=== PATIENT | male | born 1985 | race Caucasian/White ===

== ENCOUNTER 2020-03-20 18:23 | Emergency (ER) | payer SELFPAY ==
[2020-03-20] MEDS ORDERED: Sodium Chloride 0.9% 10 ML Syringe FLUSH PRN (18:51)
--- NOTE | 2020-03-20 20:33 | CR ---
Chest: PA and lateral views of the chest were obtained. Comparison: No previous chest imaging is available. Heart size and mediastinum are normal. Lungs are clear with no acute parenchymal change. Bony structures are unremarkable. Impression: 1. Nothing acute is seen on 2 view chest x-ray. Diagnostic code #1 Study was dictated in MDT
[2020-03-20] MEDS ORDERED: Sodium Chloride 0.9% 1,000 ML IV STA (20:57)
--- NOTE | 2020-03-20 23:10 | EDM.PDOC ---
ED HPI GENERAL MEDICAL PROBLEM - General Chief Complaint: Chest Pain Stated Complaint: [facility] Time Seen by Provider: 03/20/20 18:35 Source of Information: Reports: Patient History Limitations: Reports: No Limitations - History of Present Illness INITIAL COMMENTS - FREE TEXT/NARRATIVE: Patient is a 34-year-old male presenting to the emergency department with complaints of passing episode of paresthesia to his bilateral upper extremities and bilateral lower extremities, as well as some intermittent left-sided chest pain. 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 Patient reports that he was driving down the road when he had numbness in his left upper extremity causing him to lose strength. This fell off the steering wheel. It then moved to his right arm and progressively to his bilateral lower extremities. He states this was a transient episode. Lasted a few minutes and resolved by the time EMS arrived. He also reports some left-sided chest discomfort as well as pain in his right lower calf. 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 He was on Xarelto for a number of months and just recently taking off of it in December, however he was told that he does still have a DVT in that leg. He verbalizes that when he was back home in [place] about a week ago, they did a ultrasound of his leg and that the blood clot was unchanged from the previous ultrasound. He denies any significant cardiac history. States he occasionally gets some palpitations and intermittent pain in his chest and he has been checked out for this a number of times and everything is generally found normal. Patient was actually seen in the emergency department in [facility] yesterday for very similar complaints. He had a complete work-up done there including a CT scan of his head with and without contrast, a CT angiogram of his chest, and venous Doppler ultrasounds of his bilateral lower extremities. States the work-up results were grossly unremarkable. No blood clots were found. His CT scan of his head was normal. He is concerned because he states he does not know where the blood clot could have gone in a week. He still has some mild discomfort in his right popliteal area which is where the blood clot was previously. Denies any fever, chills, cough, nausea, vomiting, or diarrhea. 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 Left Upper Chest Pain Score (Numeric/FACES): 8 - Related Data Allergies Allergy/AdvReac Type Severity Reaction Status Date / Time No Known Allergies Allergy Verified 03/20/20 18:31 Home Meds: Home Meds Emtricitab/Rilpiviri/Tenof Ala [Odefsey Tablet] 1 tab PO DAILY 03/20/20 [History] Past Medical History Cardiovascular History: Reports: Blood Clots/VTE/DVT Musculoskeletal History: Reports: Fracture Neurological History: Reports: Concussion Immunologic History: Reports: HIV - Infectious Disease History Infectious Disease History: Reports: HIV-Human Immunodeficiency Virus - Past Surgical History Respiratory Surgical History: Reports: Thoracentesis GI Surgical History: Reports: Hernia, Inguinal Social & Family History - Tobacco Use Smoking Status *Q: Current Every Day Smoker Years of Tobacco use: 24 Packs/Tins Daily: 1 - Caffeine Use Caffeine Use: Reports: None - Recreational Drug Use Recreational Drug Use: No ED ROS GENERAL - Review of Systems Review Of Systems: See Below Constitutional: Reports: Weakness. Denies: Fever, Chills HEENT: Reports: No Symptoms Respiratory: Denies: Shortness of Breath, Wheezing, Cough Cardiovascular: Reports: Chest Pain, Lightheadedness Endocrine: Reports: No Symptoms GI/Abdominal: Reports: No Symptoms. Denies: Abdominal Pain, Nausea, Vomiting : Reports: No Symptoms Musculoskeletal: Reports: Leg Pain Skin: Reports: No Symptoms Neurological: Reports: No Symptoms Psychiatric: Reports: No Symptoms Hematologic/Lymphatic: Reports: No Symptoms Immunologic: Reports: No Symptoms ED EXAM, GENERAL - Physical Exam Exam: See Below General Appearance: Alert, WD/WN, No Apparent Distress Respiratory/Chest: No Respiratory Distress, Lungs Clear, Normal Breath Sounds, No Accessory Muscle Use, Chest Non-Tender Cardiovascular: Normal Peripheral Pulses, Regular Rate, Rhythm, No Edema, No Gallop, No JVD, No Murmur, No Rub GI/Abdominal: Normal Bowel Sounds, Soft, Non-Tender, No Organomegaly, No Distention, No Abnormal Bruit, No Mass Extremities: Normal Inspection, Normal Range of Motion, Non-Tender, Normal Capillary Refill, No Pedal Edema Neurological: Alert, Oriented, CN II-XII Intact, Normal Cognition, Normal Gait, Normal Reflexes, No Motor/Sensory Deficits Psychiatric: Normal Affect, Normal Mood Skin Exam: Warm, Dry, Intact, Normal Color, No Rash EKG INTERPRETATION EKG Date: 03/21/20 Time: 20:25 Rhythm: NSR Rate (Beats/Min): 68 Happy: Normal P-Wave: Present QRS: Normal ST-T: Normal QT: Normal EKG Interpretation Comments: Sinus rhythm at 68 bpm Q waves V1 V2-old anterior septal MS Early R wave transition consider septal hypertrophy Diffuse early repolarization pattern EKG interpreted by Dr. Nemo HERNANDEZ. Course - Vital Signs Last Recorded V/S: Last Vital Signs Temp 99.6 F 03/20/20 18:27 Pulse 74 03/20/20 18:27 Resp 18 03/20/20 18:27 BP 131/82 03/20/20 18:27 Pulse Ox 95 03/20/20 18:27 Orthostatic Blood Pressure [ 119/100 Standing] Orthostatic Blood Pressure [ 108/78 Sitting] Orthostatic Blood Pressure [ 114/77 Supine] - Orders/Labs/Meds Orders: Active Orders 24 hr Category Date Time Status VL Duplex Lwr Ext Veins Ltd Rt [US] Stat Exams 03/20/20 20:58 Taken Peripheral IV Insertion Adult [OM.PC] Stat Oth 03/20/20 18:51 Ordered Labs: Laboratory Tests 03/20/20 03/20/20 03/20/20 Range/Units 18:54 19:30 19:30 WBC 5.80 (4.23-9.07) K/mm3 RBC 5.05 (4.63-6.08) M/mm3 Hgb 15.6 (13.7-17.5) gm/dl Hct 45.9 (40.1-51.0) % MCV 90.9 (79.0-92.2) fl MCH 30.9 (25.7-32.2) pg MCHC 34.0 (32.2-35.5) g/dl RDW Std Deviation 46.2 H (35.1-43.9) fL Plt Count 223 (163-337) K/mm3 MPV 9.7 (9.4-12.3) fl Neut % (Auto) 60.0 (34.0-67.9) % Lymph % (Auto) 25.7 (21.8-53.1) % [place] % (Auto) 11.4 (5.3-12.2) % Eos % (Auto) 2.4 (0.8-7.0) Baso % (Auto) 0.3 (0.1-1.2) % Neut # (Auto) 3.48 (1.78-5.38) K/mm3 Lymph # (Auto) 1.49 (1.32-3.57) K/mm3 [place] # (Auto) 0.66 (0.30-0.82) K/mm3 Eos # (Auto) 0.14 (0.04-0.54) K/mm3 Baso # (Auto) 0.02 (0.01-0.08) K/mm3 D-Dimer, Quantitative 0.63 H (0.19-0.50) mg/L Sodium (136-145) mEq/L Potassium (3.5-5.1) mEq/L Chloride (98-107) mEq/L Carbon Dioxide (21-32) mEq/L Anion Gap (5-15) BUN (7-18) mg/dL Creatinine (0.7-1.3) mg/dL Est Cr Clr Drug Dosing mL/min Estimated GFR (MDRD) (>60) mL/min BUN/Creatinine Ratio (14-18) Glucose (74-106) mg/dL Calcium (8.5-10.1) mg/dL Total Bilirubin (0.2-1.0) mg/dL AST (15-37) U/L ALT (16-63) U/L Alkaline Phosphatase (46-116) U/L Troponin I (0.00-0.056) ng/mL C-Reactive Protein (<1.0) mg/dL Total Protein (6.4-8.2) g/dl Albumin (3.4-5.0) g/dl Globulin gm/dL Albumin/Globulin Ratio (1-2) Free T4 0.91 (0.76-1.46) ng/dL TSH 3rd Generation 1.755 (0.358-3.74) uIU/mL 03/20/20 Range/Units 19:30 WBC (4.23-9.07) K/mm3 RBC (4.63-6.08) M/mm3 Hgb (13.7-17.5) gm/dl Hct (40.1-51.0) % MCV (79.0-92.2) fl MCH (25.7-32.2) pg MCHC (32.2-35.5) g/dl RDW Std Deviation (35.1-43.9) fL Plt Count (163-337) K/mm3 MPV (9.4-12.3) fl Neut % (Auto) (34.0-67.9) % Lymph % (Auto) (21.8-53.1) % [place] % (Auto) (5.3-12.2) % Eos % (Auto) (0.8-7.0) Baso % (Auto) (0.1-1.2) % Neut # (Auto) (1.78-5.38) K/mm3 Lymph # (Auto) (1.32-3.57) K/mm3 [place] # (Auto) (0.30-0.82) K/mm3 Eos # (Auto) (0.04-0.54) K/mm3 Baso # (Auto) (0.01-0.08) K/mm3 D-Dimer, Quantitative (0.19-0.50) mg/L Sodium 137 (136-145) mEq/L Potassium 3.7 (3.5-5.1) mEq/L Chloride 103 (98-107) mEq/L Carbon Dioxide 26 (21-32) mEq/L Anion Gap 11.7 (5-15) BUN 11 (7-18) mg/dL Creatinine 1.0 (0.7-1.3) mg/dL Est Cr Clr Drug Dosing 126.75 mL/min Estimated GFR (MDRD) > 60 (>60) mL/min BUN/Creatinine Ratio 11.0 L (14-18) Glucose 92 (74-106) mg/dL Calcium 8.3 L (8.5-10.1) mg/dL Total Bilirubin 0.3 (0.2-1.0) mg/dL AST 24 (15-37) U/L ALT 30 (16-63) U/L Alkaline Phosphatase 98 (46-116) U/L Troponin I < 0.017 (0.00-0.056) ng/mL C-Reactive Protein 0.4 (<1.0) mg/dL Total Protein 8.6 H (6.4-8.2) g/dl Albumin 3.2 L (3.4-5.0) g/dl Globulin 5.4 gm/dL Albumin/Globulin Ratio 0.6 L (1-2) Free T4 (0.76-1.46) ng/dL TSH 3rd Generation (0.358-3.74) uIU/mL Meds: Medications Discontinued Medications Generic Name Dose Route Start Last Admin Trade Name Rosalind PRN Reason Stop Dose Admin Sodium Chloride 1,000 mls @ 999 mls/hr 03/20/20 20:57 03/20/20 20:50 Normal Saline IV 03/20/20 21:57 999 mls/hr NOW STA Administration Sodium Chloride 10 ml 03/20/20 18:51 Saline Flush FLUSH ASDIRECTED PRN Keep Vein Open - Re-Assessments/Exams Free Text/Narrative Re-Assessment/Exam: Patient is a 34-year-old male presenting emergency department with transient episode of bilateral upper extremity and lower extremity paresthesia as well as some left-sided chest pain. He states he has had episodes like this in the past most recent being yesterday. He also voices concern regarding his previous DVT to his right lower extremity. He is not significantly short of breath and appears in no distress on exam. We will complete a cardiac work-up including CBC, CMP, CRP, d-dimer, troponin, EKG, chest x-ray. If the d-dimer is found to be elevated, will consider re-ultrasound in his lower extremities as he is quite concerned with this and feels like the technique the used in [place] was not the same as the technique used in [place] he thinks he may have missed a clot. 03/20/20 2100 Hematology was grossly unremarkable with the exception of the d-dimer being minimally elevated at 0.63. Patient is requesting a venous Doppler of his right lower extremity. He also attempted to get up and walk and stated that he felt somewhat lightheaded and had a headache after returning back to the bed. We will give him a liter of IV fluids. I have also ordered a venous Doppler of the right lower extremity. 03/20/20 23:12 Venous Doppler of the right lower extremity was negative for DVT. Patient feels better after the 1 L of IV fluids. We will discharge him home with instructions to follow-up with his primary care provider upon return to [place]. If he experiences any worsening symptoms down the road, he should stop and follow-up with the closest ER. Discharge instructions as documented. Departure - Departure Time of Disposition: 23:12 Disposition: Home, Self-Care 01 Condition: Good Clinical Impression: Paresthesia Chest pain Qualifiers: Chest pain type: unspecified Qualified Code(s): R07.9 - Chest pain, unspecified Instructions: Paresthesia, Nonspecific Chest Pain, Adult Referrals: PCP,None [Primary Care Provider] - Forms: ED Department Discharge Additional Instructions: You were seen in the emergency department today for left-sided chest pain as well as a transient episode of paresthesia to your bilateral upper and lower extremities. Work-up in the ER included blood work, EKG of your heart, chest x- ray, and a venous Doppler ultrasound of your right lower extremity. Your work- up was grossly unremarkable. Your blood work was normal. Chest x-ray and EKG were also both normal. The venous Doppler ultrasound of your legs showed no evidence of blood clot. You received a liter of IV fluids while in the emergency department. Unfortunately the cause of your symptoms is not evident, we have ruled out heart attack, pulmonary emboli, or any other electrolyte kidney or liver abnormalities. Recommend that you follow-up with your primary care provider as soon as possible. If you should experience worsening symptoms, please seek care at the nearest ER. Sepsis Event Note (ED) - Evaluation Sepsis Screening Result: No Definite Risk - Focused Exam Vital Signs: Vital Signs Temp Pulse Resp BP Pulse Ox 03/20/20 18:27 99.6 F 74 18 131/82 95 - My Orders Last 24 Hours: My Active Orders 03/20/20 18:51 Peripheral IV Insertion Adult [OM.PC] Stat 03/20/20 20:58 VL Duplex Lwr Ext Veins Ltd Rt [US] Stat - Assessment/Plan Last 24 Hours: My Active Orders 03/20/20 18:51 Peripheral IV Insertion Adult [OM.PC] Stat 03/20/20 20:58 VL Duplex Lwr Ext Veins Ltd Rt [US] Stat
--- NOTE | 2020-03-21 07:17 | US ---
Right lower extremity deep venous ultrasound: Duplex and color Doppler evaluation was obtained of the right common femoral, proximal greater saphenous, superficial femoral, popliteal, posterior tibial and peroneal veins. Left common femoral vein was also evaluated. Findings: Normal phasic flow, augmentation and compression is seen. Impression: 1. No evidence of deep venous thrombosis within the right lower extremity or within the left common femoral vein. Diagnostic code #1 Agree with preliminary report issued by [facility] ([facility] preliminary report dictated on 03/20/20, 11:30 PM Central Daylight Time) Study was dictated in MDT
== END 2020-03-20 23:54 | disposition home or self-care (01) ==
LOC: JD.ED 18:23
DX: R20.2 Paresthesia of skin (principal); B20 Human immunodeficiency virus [HIV] disease; F17.210 Nicotine dependence, cigarettes, uncomplicated
CPT/HCPCS: 36415; 71046; 80053; 84439; 84443; 84484; 85025; 85379; 86140; 93005; 93971; 96360; 99285; J7030; 93010; 99283